=== PATIENT | male | born 1980 | race Caucasian/White ===

== ENCOUNTER 2023-11-22 01:28 | Emergency (ER) | payer SELFPAY ==
[~2023-11-22] VITALS: Ht 175.3 cm; Wt 68.0 kg
[2023-11-22 01:40] VITALS: BP 153/101; PULSE 92; RESP 20; O2SAT 98
== END 2023-11-22 07:32 | disposition left against medical advice (07) ==
LOC: ER 01:28
DX: R51.9 Headache, unspecified (principal); Z53.21 Procedure and treatment not carried out due to patient leaving prior to being seen by health care provider